=== PATIENT | female | born 1935 | race Two or more races ===

== ENCOUNTER 2021-11-05 16:00 | Emergency (ER) | payer OTHER ==
[~2021-11-05] VITALS: Ht 142.2 cm; Wt 60.8 kg
[2021-11-05] MEDS ORDERED: VASOTEC20 M1 ×2 (18:58→18:59)
[2021-11-05] MEDS ORDERED: COZAAR100 MG (18:58)
[2021-11-05] MEDS ORDERED: ATORVASTATIN CA40 MG (18:59)
[2021-11-05] MEDS ORDERED: ULTRAM50 MG (19:00)
[2021-11-05] MEDS ORDERED: NEURONTIN800 MG (19:00)
[2021-11-05] MEDS ORDERED: COUMADIN (19:00)
[2021-11-05] MEDS ORDERED: PEPCID AC10 MG (19:02)
== END 2021-11-05 23:51 | disposition home or self-care (01) ==
LOC: ER 16:00
DX: I16.0 Hypertensive urgency (principal); I10 Essential (primary) hypertension; I48.0 Paroxysmal atrial fibrillation

== ENCOUNTER 2022-11-23 11:11 | Inpatient (IN) | payer OTHER ==
[~2022-11-23] VITALS: Ht 144.8 cm; Wt 59.0 kg
[~2022-11-23 11:11] MED LIST: ATORVASTATIN CA40 MG PO; COUMADIN; COZAAR100 MG; NEURONTIN800 MG; PEPCID AC10 MG; ULTRAM50 MG; VASOTEC20 M1; VASOTEC20 M1 PO
[2022-11-23] MEDS ORDERED: JANTOVEN3 MG PO (12:01)
[2022-11-23] MEDS ORDERED: SINGULAIR10 MG PO (12:02)
[2022-11-23] MEDS ORDERED: TIROSINT50 MCG PO (12:02)
[2022-11-23] MEDS ORDERED: ZYRTEC10 M3 PO (12:04)
[2022-11-27] MEDS ORDERED: OLOPATADINE HCL5 ML (10:50)
[2022-11-27] MEDS ORDERED: VASOFLEX HD CA1 EACH (10:51)
[2022-11-27] MEDS ORDERED: FLONASE SENSIM5.9 ML (10:51)
[2022-11-27] MEDS ORDERED: KETOTIFEN FUMARA5 ML (10:51)
[2022-11-27] MEDS ORDERED: OPTIVE EYE DROP15 ML (10:51)
== END 2022-11-30 11:28 | DRG 482 ==
LOC: ER 11:11 → MEDJ 21:22 → SURH 21:22
PROVIDERS: Orthopaedic Surgery; ADMIT Internal Medicine; ATTEND Internal Medicine
PROC: 0QS606Z Reposition Right Upper Femur with Intramedullary Internal Fixation Device, Open Approach (ICD-10-PCS; principal; 2022-11-26 07:30)
DX: S72.141A Displaced intertrochanteric fracture of right femur, initial encounter for closed fracture (principal); I10 Essential (primary) hypertension; E03.9 Hypothyroidism, unspecified; I48.0 Paroxysmal atrial fibrillation; I51.7 Cardiomegaly; Z20.822 Contact with and (suspected) exposure to COVID-19; W07.XXXA Fall from chair, initial encounter; Z91.81 History of falling; Y93.89 Activity, other specified; Y92.098 Other place in other non-institutional residence as the place of occurrence of the external cause

== ENCOUNTER 2023-01-31 13:10 | Outpatient (CLI) | payer OTHER ==
[~2023-01-31 13:10] MED LIST changes: +FLONASE SENSIM5.9 ML; +JANTOVEN3 MG PO; +KETOTIFEN FUMARA5 ML; +OLOPATADINE HCL5 ML; +OPTIVE EYE DROP15 ML; +SINGULAIR10 MG PO; +TIROSINT50 MCG PO; +VASOFLEX HD CA1 EACH; +ZYRTEC10 M3 PO
== END 2023-01-31 13:29 | disposition home or self-care (01) ==
LOC: RAD 13:10
PROVIDERS: ATTEND Orthopaedic Surgery
DX: M25.512 Pain in left shoulder (principal); M25.561 Pain in right knee; M54.59 Other low back pain; M79.605 Pain in left leg; Z96.652 Presence of left artificial knee joint